=== PATIENT | female | born 1965 | race Caucasian/White ===

== ENCOUNTER 2019-01-12 13:36 | Inpatient (IN) | payer OTHER ==
--- OUTSIDE RECORDS SUMMARY | 2019-01-12 13:45 | XMS REPORT | Clinical Summary ---
:1965 Author Organization [facility] Address [address] [place] [address] Care Team Providers Name Role Phone Ovi Bassett Primary Care Provider Unavailable Allergies No Known Allergies Medications Medication Sig Dispensed Refills Start End Status Date Date QUEtiapine (SEROquel) Take 1 tablet 90 tablet 1 Active 25 MG (25 mg total) 9 019 tabletIndications: by mouth Schizoaffective nightly for 180 disorder, bipolar type days. ([facility]) SYMBICORT 160-4.5 INHALE 2 PUFFS 1 Inhaler 2 Active mcg/actuation BY MOUTH TWICE 9 019 inhalerIndications: DAILY Mild intermittent reactive airway disease without complication DULoxetine (CYMBALTA) TAKE ONE 90 capsule 0 Active 60 MG capsule CAPSULE BY 9 MOUTH DAILY DULoxetine (CYMBALTA) 0 Discontinued 60 MG capsule 9 018 melatonin-lemon balm 0 Discontinued leaf extr 10-1 mg 4 018 tablet diazePAM (VALIUM) 5 MG 0 Discontinued tablet 4 018 QUEtiapine (SEROquel) Take 0.5 15 tablet 2 Discontinued 25 MG tablets (12.5 8 018 tabletIndications: mg total) by Xochilt associated with mouth nightly Bipolar Disorder for 90 days. budesonide-formoterol Inhale 2 puffs 1 Inhaler 5 Discontinued (SYMBICORT) 160-4.5 2 (two) times a 8 019 mcg/actuation day. inhalerIndications: Mild intermittent reactive airway disease without complication diazePAM (VALIUM) 5 MG Take 1 tablet 30 tablet 0 Discontinued tabletIndications: (5 mg total) by 8 018 Schizoaffective mouth every 12 disorder, bipolar type (twelve) hours (HCC) as needed for anxiety for up to 30 days. DULoxetine (CYMBALTA) Take 1 capsule 90 capsule 3 Discontinued 60 MG (60 mg total) 8 019 capsuleIndications: by mouth daily. Schizoaffective disorder, bipolar type (HCC) nitrofurantoin, Take 1 capsule 6 capsule 0 macrocrystal-monohydra (100 mg total) 8 018 te, (MACROBID) 100 MG by mouth 2 capsule (two) times a day for 3 days. methylPREDNISolone follow package 21 tablet 0 (MEDROL, GISSELLE,) 4 mg directions 8 018 tabletIndications: Mild intermittent reactive airway disease without complication ciprofloxacin (CIPRO) Take 1 tablet 10 tablet 0 500 MG (500 mg total) 8 018 tabletIndications: by mouth 2 Urinary tract (two) times a infection without day for 5 days. hematuria, site unspecified QUEtiapine (SEROquel) Take 1 tablet 30 tablet 2 Discontinued 25 MG (25 mg total) 8 019 tabletIndications: by mouth Xochilt associated with nightly for 90 Bipolar Disorder days. albuterol (PROAIR Inhale 2 puffs 18 g 1 Discontinued HFA,PROVENTIL every 6 (six) 8 019 HFA,VENTOLIN HFA) 90 hours as needed mcg/actuation for wheezing or inhalerIndications: shortness of Mild intermittent breath. asthma with acute exacerbation predniSONE (DELTASONE) Take 1 tablet 6 tablet 0 20 mg (20 mg total) 8 018 tabletIndications: by mouth 2 Mild intermittent (two) times a asthma with acute day for 3 days. exacerbation vortioxetine Take 10 mg by 30 tablet 2 Discontinued (TRINTELLIX) 10 mg mouth daily for 9 019 tabletIndications: 90 days. Schizoaffective disorder, bipolar type ([facility]) methylPREDNISolone follow package 21 tablet 0 (MEDROL, GISSELLE,) 4 mg directions 9 019 tabletIndications: Intrinsic eczema ciclopirox-nail Apply 1 1 kit 0 lacquer removr 8 % application 019 kitIndications: topically Onychomycosis nightly for 30 days. DULoxetine (CYMBALTA) TAKE ONE 90 capsule 0 Discontinued 60 MG capsule CAPSULE BY 019 MOUTH DAILY PROAIR HFA 90 INHALE 2 PUFFS 17 g 2 mcg/actuation BY MOUTH EVERY 019 inhalerIndications: 6 HOURS Mild intermittent NEEDED FOR asthma with acute WHEEZING OR exacerbation SHORTNESS OF BREATH Hospital, Clinic, or Other Ordered Dose Route Frequency Start Date End Date Status Facility Administered Medication methylPREDNISolone acetate 80 mg IM once 06/07/2018 06/07/2018 Ended (DEPO-MEDROL) injection 80 mgIndications: Mild intermittent asthma with acute exacerbation Active Problems Problem Noted Date Weight gain due to medication 11/11/2018 Last Assessment & Plan: Therapeutic lifestyle changes discussed Screen for diabetes, dyslipidemia and cv risk factors Mixed hyperlipidemia 11/11/2018 Primary fibromyalgia 07/07/2018 Last Assessment & Plan: Encouraged mobility; nsaid for pain, SSRI treatment R/out rheumatoid arthritis or autoimmunity Mild intermittent asthma with acute exacerbation 06/07/2018 Last Assessment & Plan: Acute exacerbation. VSS meds per orders Follow up if not improved in 5-7 days Er precautions given Urinary tract infection without hematuria 04/26/2018 Last Assessment & Plan: Hx and exam suggestive of cystitis. Failed treatment with bactrim; Ucx sent Treat with ciprofloxacin Schizoaffective disorder, bipolar type 04/12/2018 Last Assessment & Plan: Controlled Continue cymbalta and seroquel Regular exercise Follow up in 3 months Reactive airway disease 04/12/2018 Need for shingles vaccine 04/12/2018 Resolved Problems Problem Noted Date Resolved Date Intrinsic eczema 08/15/2018 11/11/2018 Onychomycosis 08/15/2018 11/11/2018 RLS (restless legs syndrome) 07/07/2018 11/11/2018 Polyarthralgia 07/07/2018 11/11/2018 Leukocytosis 04/26/2018 11/11/2018 Last Assessment & Plan: Unknown etiology; to repeat before next appt. Annual physical exam 04/12/2018 04/27/2018 Last Assessment & Plan: 52 y.o. female who was seen today for Annual physical exam with complaints of bipolar type 1. Discussed CVD risk reduction, dietary interventions, appropriate physical exercise. General Precautions given: begin progressive daily aerobic exercise program, follow a low fat, low cholesterol diet and reduce exposure to stress Depression Screening: Positive, but patient is excluded from the follow up due to the following reasons: patient has an active diagnoses of Depression . Needs flu shot 04/12/2018 04/27/2018 Encounter for screening mammogram for breast cancer 04/12/2018 04/27/2018 Encounters Date Type Specialty Care Team Description 11/28/2018 Refill Ovi Hernandez MD 11/10/2018 Office Visit Family Ovi Will, Schizoaffective disorder, bipolar type (HCC) (Primary Dx); Weight gain due to medication; Mixed hyperlipidemia 10/15/2018 Refill Family Ovi Will Mild intermittent reactive airway disease without complication 10/10/2018 Refill Family Ovi Will, Mild intermittent asthma with acute exacerbation 09/03/2018 Refill Ovi Hernandez MD 08/16/2018 Refill Family Ovi Will Schizoaffective MD disorder, bipolar type (HCC) 08/15/2018 Office Visit Family Ovi Will, Schizoaffective disorder, bipolar type (HCC) (Primary Dx); Intrinsic eczema; Onychomycosis 07/07/2018 Office Visit Family Ovi Will, Primary fibromyalgia (Primary Dx); RLS (restless legs syndrome); Polyarthralgia; Need for shingles vaccine 06/07/2018 Office Visit Ovi Hernandez, Mild intermittent reactive airway disease without complication (Primary Dx); Schizoaffective disorder, bipolar type (HCC); Mild intermittent asthma with acute exacerbation 04/26/2018 Office Visit Family Ovi Will, Urinary tract infection without hematuria, site unspecified (Primary Dx); Mild intermittent reactive airway disease without complication; Leukocytosis, unspecified type 04/21/2018 Transcribe Orders Access Ovi Bassett, Abnormal mammogram (Primary Dx) 04/17/2018 Hospital Encounter Radiology Ovi Bassett, Encounter for screening MD mammogram for breast cancer 04/14/2018 Telephone Family Medicine Ovi Bassett 04/12/2018 Office Visit Family Ovi Will, Annual physical exam (Primary Dx); Schizoaffective disorder, bipolar type; Mild intermittent reactive airway disease without complication; Needs flu shot; Need for pneumococcal vaccination; Encounter for screening mammogram for breast cancer after 01/11/2018 Immunizations Name Dates Previously Given Next Due FLUBLOK QUAD PF 04/12/2018 Pneumococcal Polysaccharide 04/12/2018 Zoster Vaccine Recombinant 07/07/2018 Social History Tobacco Use Types Packs/Day Years Used Date Former Smoker Smokeless Tobacco: Never Used Alcohol Use Drinks/Week oz/Week Comments No Sex Assigned at Date Recorded Not on file Job Start Date Occupation Industry Not on file Not on file Not on file Travel History Travel Start Travel End No recent travel history available. Last Filed Vital Signs Vital Sign Reading Time Taken Blood Pressure 136/88 11/10/2018 7:44 AM CDT Pulse 90 11/10/2018 7:44 AM CDT Temperature 36.9 C (98.5 F) 11/10/2018 7:44 AM CDT Respiratory Rate - - Oxygen Saturation 99% 11/10/2018 7:44 AM CDT Inhaled Oxygen Concentration - - Weight 62.6 kg (138 lb) 11/10/2018 7:44 AM CDT Height 158.8 cm (5' 2.5") 11/10/2018 7:44 AM CDT Body Mass Index 24.84 11/10/2018 7:44 AM CDT Plan of Treatment Date Type Specialty Care Team Description 01/19/2019 Office Visit Family Ovi Will MD [address] [place] [address] [phone] Health Maintenance Due Date Last Done Comments COLONOSCOPY SCREENING 10/29/2017 SHINGLES VACCINES (#2) 09/07/2018 07/07/2018 INFLUENZA VACCINE 02/15/2019 04/12/2018 BREAST CANCER SCREENING 04/27/2020 04/27/2018, 04/21/2018, 04/17/2018, Additional history exists Procedures Procedure Name Priority Date/Time Associated Comments Diagnosis RHEUMATOID ARTHRITIS Routine 07/07/2018 11:23 Primary Results for this DIAGNOSTIC PANEL AM JOB HAND fibromyalgia procedure are in IDENTRA(TM) WITH RLS (restless legs the results 14.3.3 ETA syndrome) section. Polyarthralgia SEDIMENTATION RATE Routine 07/07/2018 11:23 Primary Results for this AM JOB HAND fibromyalgia procedure are in RLS (restless legs the results syndrome) section. Polyarthralgia JAMSHID SCREEN W IFA W Routine 07/07/2018 11:23 Primary Results for this REFLEX TO TITER AM JOB HAND fibromyalgia procedure are in RLS (restless legs the results syndrome) section. Polyarthralgia C-REACTIVE PROTEIN Routine 07/07/2018 11:23 Primary Results for this AM JOB HAND fibromyalgia procedure are in RLS (restless legs the results syndrome) section. Polyarthralgia TOTAL IRON BINDING Routine 07/07/2018 11:23 Primary Results for this CAPACITY AM JOB HAND fibromyalgia procedure are in RLS (restless legs the results syndrome) section. Polyarthralgia TRANSFERRIN LEVEL Routine 07/07/2018 11:23 Primary Results for this AM JOB HAND fibromyalgia procedure are in RLS (restless legs the results syndrome) section. Polyarthralgia CBC HEMOGRAM Routine 07/07/2018 11:23 Primary Results for this AM JOB HAND fibromyalgia procedure are in RLS (restless legs the results syndrome) section. Polyarthralgia FERRITIN LEVEL Routine 07/07/2018 11:23 Primary Results for this AM JOB HAND fibromyalgia procedure are in RLS (restless legs the results syndrome) section. Polyarthralgia CBC WITH PLATELET AND Routine 06/02/2018 12:00 Leukocytosis, Results for this DIFFERENTIAL AM JOB HAND unspecified type procedure are in the results section. URINALYSIS, COMPLETE, Routine 04/26/2018 12:00 Urinary tract Results for this WITH REFLEX TO CULTURE AM CDT infection without procedure are in hematuria, site the results unspecified section. MAMMO BREAST SCREEN Routine 04/17/2018 9:30 Encounter for Results for this TOMOSYNTHESIS AM CDT screening mammogram procedure are in BILATERAL for breast cancer the results section. VITAMIN D 25 HYDROXY Routine 04/12/2018 12:00 Annual physical Results for this LEVEL AM CDT exam procedure are in the results section. LIPID PANEL WITH Routine 04/12/2018 12:00 Annual physical Results for this REFLEX TO DIRECT LDL AM CDT exam procedure are in the results section. THYROID STIMULATING Routine 04/12/2018 12:00 Annual physical Results for this HORMONE AM CDT exam procedure are in the results section. T4, FREE Routine 04/12/2018 12:00 Annual physical Results for this AM CDT exam procedure are in the results section. URINALYSIS, COMPLETE, Routine 04/12/2018 12:00 Annual physical Results for this WITH REFLEX TO CULTURE AM CDT exam procedure are in the results section. HEMOGLOBIN A1C Routine 04/12/2018 12:00 Annual physical Results for this AM CDT exam procedure are in the results section. COMPREHENSIVE Routine 04/12/2018 12:00 Annual physical Results for this METABOLIC PANEL AM CDT exam procedure are in the results section. CBC WITH PLATELET AND Routine 04/12/2018 12:00 Annual physical Results for this DIFFERENTIAL AM CDT exam procedure are in the results section. URINE CULTURE Routine 04/12/2018 12:00 Results for this AM CDT procedure are in the results section. after 01/11/2018 Results JAMSHID SCREEN W IFA W REFLEX TO TITER (07/07/2018 11:23 AM JOB HAND) Pathologist [facility] JAMSHID screen NEGATIVE NEGATIVE [facility] Comment: PadletMARIA ESTHER JAMSHID IFA is a first line screen for detecting the II presence of up to approximately 150 autoantibodies in various autoimmune diseases. A negative JAMSHID IFA result suggests JAMSHID-associated autoimmune diseases are not present at this time. Visit Physician FAQs for interpretation of all antibodies in the [place], prevalence, and association with diseases at http://education.Aviary/ faq/EJX842 Specimen Blood Narrative Performed At FASTING:YES [facility] FASTING: YES Resulting Agency Comment Performing Organization Information: Site ID: [id number] Name: [facility] Address: [address] [place] [phone] Director: Dr. Moises Sommers Performing Organization Address City/State/Zipcode Phone Number [facility] II [address] [place] [address] RHEUMATOID ARTHRITIS DIAGNOSTIC PANEL IDENTRA(TM) WITH 14.3.3 ETA (07/07/2018 11 :23 AM JOB HAND) Rheumatoid factor <14 <14 IU/mL [facility]EREK OLS [facility] Cyclic citrullin <16 Units [facility] peptide Ab Comment: DIAGNOSTICS/DEREK Reference Range: [facility] NEGATIVE: <20 WEAK POSITIVE: 20-39 MODERATE POSITIVE: 40-59 STRONG POSITIVE >59 14.3.3 ETA protein <0.2 <0.2 ng/mL [facility] Comment: DIAGNOSTICS/DEREK [facility] The 14-3-3 eta protein is a marker of synovial inflammation that is released into synovial fluid and peripheral blood in rheumatoid arthritis (RA) and erosive psoriatic arthritis. One in five RF and CCP seronegative early stage RA patients is found to be positive for 14-3-3 eta protein. Patients with active joint RA disease have higher values of 14-3-3 eta protein than those with inactive RA or psoriasis without arthritis. Values >0.50 ng/mL are associated with more aggressive disease and poorer outcomes. Unlike RF and CCP, 14-3-3 eta is a therapeutically modifiable marker to monitor response to therapy. For further information please visit: [email or web address]? [email or web address] This test was developed and its analytical performance characteristics have been determined by [facility]. It has not been cleared or approved by FDA. This assay has been validated pursuant to the CLIA regulations and is used for clinical purposes. Specimen Narrative Performed At FASTING:YES [facility] FASTING: YES Resulting Agency Comment Performing Organization Information: Site ID: [id number] Name: [facility], Address: [address] [place] [phone] Director: Aundrea Silver MD,PhD,VICKI Performing Organization Address City/[facility] [place] Phone Number [employer]/[address] [address] [phone] [facility] Total iron binding capacity (07/07/2018 11:23 AM JOB HAND) Iron level 66 45 - 160 mcg/dL [facility] Iron binding capacity 343 250 - 450 mcg/dL [employer] (calc) [place] Iron saturation 19 11 - 50 % (calc) [facility] Specimen Blood Narrative Performed At FASTING:YES [facility] FASTING: YES Resulting Agency Comment Performing Organization Information: Site ID: RGA Name: [facility] Address: [address] [place] [phone] Director: Jennifer Salter Performing Organization Address City/State/Zipcode Phone Number [employer] [place] [address] [place] [phone] Sedimentation rate (07/07/2018 11:23 AM JOB HAND) Pathologist [facility] Sedimentation rate 9 < OR=20 mm/h [employer] [place] Specimen Blood Narrative Performed At FASTING:YES [facility] FASTING: YES Resulting Agency Comment Performing Organization Information: Site ID: [id number] Name: [facility] Address: [address] [place] [phone] Director: Jennifer Salter Performing Organization Address City/State/[facility] Phone Number [employer] [place] [address] [place] [phone] CBC hemogram (07/07/2018 11:23 AM JOB HAND) [facility] WBC 10.7 3.8 - 10.8 [facility] Thousand/uL [place] RBC 4.77 3.80 - 5.10 [facility] Million/uL [place] HGB 13.0 11.7 - 15.5 g/dL [employer] [place] HCT 40.3 35.0 - 45.0 % [employer] [place] MCV 84.5 80.0 - 100.0 fL [employer] [place] MCH 27.3 27.0 - 33.0 pg [employer] [place] MCHC 32.3 32.0 - 36.0 g/dL [employer] [place] RDW 14.5 11.0 - 15.0 % [employer] [place] Platelet count 405 (H) 140 - 400 [employer] Thousand/uL [place] MPV 10.0 7.5 - 12.5 fL [employer] [place] Specimen Blood Narrative Performed At FASTING:YES [facility] FASTING: YES Resulting Agency Comment Performing Organization Information: Site ID: [id number] Name: [facility] Address: [address] [place] [phone] Director: Jennifer Salter Performing Organization Address [facility] Phone Number [employer] [address] [address] C-reactive protein (07/07/2018 11:23 AM JOB HAND) Pathologist [facility] CRP 1.7 <8.0 mg/L [employer] [place] Specimen Blood Narrative Performed At FASTING:YES [facility] FASTING: YES Resulting Agency Comment Performing Organization Information: Site ID: RGA Name: [facility] Address: [address] [place] [phone] Director: Jennifer Salter Performing Organization Address [facility] Phone Number [facility] [employer] [address] [address] Transferrin level (07/07/2018 11:23 AM JOB HAND) Pathologist [facility] Transferrin 264 188 - 341 mg/dL [facility] Specimen Blood Narrative Performed At FASTING:YES [facility] FASTING: YES Resulting Agency Comment Performing Organization Information: Site ID: [id number] Name: [facility] Address: [address] [place] [phone] Director: Dr. Moises Sommers Performing Organization Address [facility] Phone Number [facility] [employer] [address] Ferritin level (07/07/2018 11:23 AM JOB HAND) Pathologist [facility] Ferritin level 48 10 - 232 ng/mL [facility] [place] Specimen Blood Narrative Performed At FASTING:YES [facility] FASTING: YES Resulting Agency Comment Performing Organization Information: Site ID: RGA Name: [facility] Address: [address] [place] [phone] Director: Jennifer Salter Performing Organization Address [facility] [place] Phone Number [employer] [address] [address] CBC with platelet and differential (06/02/2018 12:00 AM JOB HAND)Only the most recent of2 resultswithin the time period is included. Pathologist [facility] WBC 10.0 3.8 - 10.8 [facility] Thousand/uL [place] RBC 4.55 3.80 - 5.10 [facility] Million/uL [place] HGB 12.7 11.7 - 15.5 [facility] g/dL [place] HCT 38.4 35.0 - 45.0 % [facility] [place] MCV 84.4 80.0 - 100.0 fL [employer] [place] MCH 27.9 27.0 - 33.0 pg [facility] [place] MCHC 33.1 32.0 - 36.0 [facility] g/dL [place] RDW 13.9 11.0 - 15.0 % [facility] Platelet count 401 (H) 140 - 400 [facility] Thousand/uL [place] MPV 9.8 7.5 - 12.5 fL [facility] [place] Neutrophils, absolute 5,740 1,500 - 7,800 [facility] cells/uL [place] Lymphocytes, absolute 3,410 850 - 3,900 [facility] cells/uL [place] Monocytes, absolute 600 200 - 950 [facility] cells/uL [place] Eosinophils, absolute 180 15 - 500 [facility] cells/uL [place] Basophils, absolute 70 0 - 200 [facility] cells/uL [place] Neutrophils 57.4 % [facility] [place] Lymphocytes 34.1 % [facility] [place] Monocytes 6.0 % [facility] [place] Eosinophils 1.8 % [facility] [place] Basophils + RC 0.7 % [facility] [place] Specimen Blood Narrative Performed At FASTING:NO [facility] FASTING: NO Resulting Agency Comment Performing Organization Information: Site ID: RGA Name: [facility] Address: [address] [place] [phone] Director: Jennifer Salter Performing Organization Address City/State/Zipcode Phone Number [employer] [place] [address] [place] [address] URINALYSIS, COMPLETE, WITH REFLEX TO CULTURE (04/26/2018 12:00 AM CDT)Only the most recent of2 resultswithin the time period is included. Color, UA YELLOW YELLOW [facility] [place] Appearance CLEAR CLEAR [facility] [place] Specific gravity, 1.026 1.001 - 1.035 [facility] urine [place] pH, urine < OR=5.0 5.0 - 8.0 [facility] [place] Glucose, urine NEGATIVE NEGATIVE [facility] [place] Bilirubin, UA NEGATIVE NEGATIVE [facility] [place] Ketones, UA TRACE (A) NEGATIVE [facility] [place] Occult blood, NEGATIVE NEGATIVE [facility] urine [place] Protein, UA TRACE (A) NEGATIVE [facility] [place] Nitrite, UA NEGATIVE NEGATIVE [facility] [place] Leukocyte NEGATIVE NEGATIVE [facility] esterase, UA [place] WBC, UA NONE SEEN < OR=5 /HPF [facility] [place] RBC, UA NONE SEEN < OR=2 /HPF [facility] [place] Squamous NONE SEEN < OR=5 /HPF [facility] epithelial cells, [place] UA Bacteria, UA NONE SEEN NONE SEEN /HPF [facility] [place] Hyaline casts, UA NONE SEEN NONE SEEN /LPF [facility] [place] Reflex NO CULTURE [facility] Specimen Resulting Agency Comment Performing Organization Information: Site ID: RGA Name: [facility] Address: [address] [place] [phone] Director: Jennifer Salter Performing Organization Address City/State/Zipcode Phone Number [facility] [place] [address] [place], [place] [phone] Mammo Breast Screen Tomosynthesis Bilateral (04/17/2018 9:30 AM CDT) Specimen Addenda Addendum by Ami Henriquez MD on 05/02/2018 3:33 PM ADDENDUM #1 Films from outside mammogram dated 03/17/2011 and 05/20/2009 performed in [place], [place] submitted for comparison. There has been no significant interval change in the mammographic appearance of the bilateral breasts allowing for differences in imaging technique. The previously described right breast asymmetry is stable in appearance compared to prior outside imaging dating back to 2008 and is considered benign. IMPRESSION: No specific mammographic features of breast malignancy. Final assessment: BIRADS 2. Benign findings. Recommend correlation with physical examination and annual screening mammography. Narrative Performed At EXAMINATION: MAMMO BREAST SCREEN TOMOSYNTHESIS BILATERAL HM RADIANT COMPARISON:No prior mammograms provided for comparison. TECHNIQUE: Bilateral digital screening mammography was performed with tomosynthesis and interpreted using computer-assisted detection. CLINICAL HISTORY: 52-year-old asymptomatic female. No personal or family history of breast malignancy. The patient presents for routine screening. FINDINGS: There are scattered fibroglandular densities. There are bilateral arterial vascular calcifications which should be correlated with cardiac and endocrine risk factors. There are no suspicious masses, calcifications or distortions in the left breast.There is an asymmetry in the anterior central right breast seen only on the CC view. IMPRESSION: 1. Right breast asymmetry. Recommend correlation with previous outside imaging to assess stability. If prior images cannot be obtained in three weeks, further diagnostic evaluation is warranted. 2. No specific mammographic features of left breast malignancy. BI-RADS 0. Incomplete. Additional imaging required. The patient should return for additional views and possible ultrasound of the right breast. Tomosynthesis guidance may be of aid. If prior outside mammograms become available for comparison, an addendum will be provided. This facility is accredited by the [place] for Mammography. A negative x-ray report should not delay biopsy if a dominant or clinically suspicious mass is present.Not all cancers are identified by x-ray. [id number] Performing Organization Address [facility] Phone Number KIARA [address] [place] [address] LIPID PANEL WITH REFLEX TO DIRECT LDL (04/12/2018 12:00 AM CDT) [facility] Cholesterol, total 197 <200 mg/dL [facility] [place] HDL cholesterol 63 >50 mg/dL [facility] [place] Triglycerides 97 <150 mg/dL [facility] [place] LDL cholesterol 114 (H) mg/dL (calc) [facility] calculated Comment: [place] Reference range: <100 Desirable range <100 mg/dL for primary prevention; <70 mg/dL for patients with CHD or diabetic patients with > or=2 CHD risk factors. LDL-C is now calculated using the Ju calculation, which is a validated novel method providing better accuracy than the Friedewald equation in the estimation of LDL-C. Isaias SYED et al. ESHA. 2013;310(19): 2424-0183 (http://education.CSID.Genetic Finance/faq/YMQ748) Cholesterol/HDL 3.1 <5.0 (calc) [facility] Non-HDL cholesterol 134 (H) <130 mg/dL [facility] Comment: (calc) [place] For patients with diabetes plus 1 major ASCVD risk factor, treating to a non-HDL-C goal of <100 mg/dL (LDL-C of <70 mg/dL) is considered a therapeutic option. Specimen Narrative Performed At FASTING:YES [facility] FASTING: YES Resulting Agency Comment Performing Organization Information: Site ID: [id number] Name: [facility] Address: [address] [place] [phone] Director: Jennifer Salter Performing Organization Address [facility] Phone Number [facility] [place] [address] [place], [place] [id number] Vitamin D 25 hydroxy level (04/12/2018 12:00 AM CDT) [facility] Vitamin D, 40 30 - 100 [facility] 25-hydroxy Comment: ng/mL [place] Vitamin D Status 25-OH Vitamin D: Deficiency:<20 ng/mL Insufficiency: 20 - 29 ng/mL Optimal: > or=30 ng/mL For 25-OH Vitamin D testing on patients on D2-supplementation and patients for whom quantitation of D2 and D3 fractions is required, the QuestAssureD(TM) 25-OH VIT D, (D2,D3), LC/MS/MS is recommended: order code 07364 (patients >2yrs). For more information on this test, go to: http://education.SmartCare system/faq/DAH537 (This link is being provided for informational/educational purposes only.) Specimen Blood Narrative Performed At FASTING:YES [facility] FASTING: YES Resulting Agency Comment Performing Organization Information: Site ID: [facility] Name: [facility] Address: [address] [place] [phone] Director: Jennifer Salter Performing Organization Address [facility] [place] [address] Urine culture (04/12/2018 12:00 AM CDT) Urine culture SEE NOTE (A) [facility] Comment: [place] CULTURE, URINE, ROUTINE MICRO NUMBER:[id number] TEST STATUS: FINAL SPECIMEN SOURCE: URINE SPECIMEN QUALITY:ADEQUATE RESULT:10,000-50,000 CFU/mL of Group B Streptococcus isolated Beta-hemolytic Streptococci are predictably susceptible to penicillin and other beta-lactams. Susceptibility testing not routinely performed. COMMENT: Erythromycin and clindamycin are not recommended for treatment of urinary tract infections, but clindamycin may be useful for treatment of rectovaginal colonization or infection. COMMENT: Additional organism(s) less than 10,000 CFU/ mL isolated. These organisms, commonly found on external and internal genitalia, are considered colonizers. No further testing performed. Specimen Narrative Performed At FASTING:YES [facility] FASTING: YES Resulting Agency Comment Performing Organization Information: Site ID: [facility] Name: [facility] Address: [address] [place] [phone] Director: Jennifer aSlter Performing Organization Address [facility] [place] [address] Thyroid stimulating hormone (04/12/2018 12:00 AM CDT) TSH 1.87 mIU/L [facility] Comment: [place] Reference Range > or=20 Years0.40-4.50 Ranges First trimester0.26-2.66 Second trimester 0.55-2.73 Third trimester0.43-2.91 Specimen Blood Narrative Performed At FASTING:YES [facility] FASTING: YES Resulting Agency Comment Performing Organization Information: Site ID: [facility] Name: [facility] Address: [address] [place] [phone] Director: Jennifer Salter Performing Organization Address [facility] Phone Number SP [facility] [place] [phone] T4, free (04/12/2018 12:00 AM CDT) T4, free 0.9 0.8 - 1.8 ng/dL [facility] [place] Specimen Blood Narrative Performed At FASTING:YES [facility] FASTING: YES Resulting Agency Comment Performing Organization Information: Site ID: [facility] Name: [facility] Address: [address] [place] [phone] Director: Jennifer Salter Performing Organization Address [facility] [place] Phone Number [place] [address] Hemoglobin A1c (04/12/2018 12:00 AM CDT) Hemoglobin A1C 5.1 <5.7 % of [facility] Comment: total Hgb [place] For the purpose of screening for the presence of diabetes: <5.7% Consistent with the absence of diabetes 5.7-6.4%Consistent with increased risk for diabetes (prediabetes) > or=6.5%Consistent with diabetes This assay result is consistent with a decreased risk of diabetes. Currently, no consensus exists regarding use of hemoglobin A1c for diagnosis of diabetes in children. According to [place] [employer] (ADA) guidelines, hemoglobin A1c <7.0% represents optimal control in non- diabetic patients. Different metrics may apply to specific patient populations. Standards of Medical Care in Diabetes(ADA). Specimen Blood Narrative Performed At FASTING:YES [facility] FASTING: YES Resulting Agency Comment Performing Organization Information: Site ID: [facility] Name: [facility] Address: [address] [place] [phone] Director: Jennifer Salter Performing Organization Address [facility] Phone Number SP [employer] [place] [address] Comprehensive metabolic panel (04/12/2018 12:00 AM CDT) [facility] Glucose 90 65 - 99 [facility] Comment: mg/dL [place] Fasting reference interval BUN, whole blood 13 7 - 25 mg/dL [facility] [place] Creatinine 0.97 0.50 - 1.05 [facility] Comment: mg/dL [place] For patients >49 years of age, the reference limit for Creatinine is approximately 13% higher for people identified as -Maltese. EGFR Non-Afr. 68 > OR=60 [facility] [place] mL/min/1.73m [place] 2 EGFR 79 > OR=60 [facility] [place] mL/min/1.73m [place] 2 BUN/creatinine NOT APPLICABLE 6 - 22 [facility] ratio (calc) [place] Sodium 140 135 - 146 [facility] mmol/L [place] Potassium 3.5 3.5 - 5.3 [facility] mmol/L [place] Chloride 107 98 - 110 [facility] mmol/L [place] CO2 23 20 - 32 [facility] mmol/L [place] Calcium 9.4 8.6 - 10.4 [facility] mg/dL [place] Protein 7.4 6.1 - 8.1 [facility] g/dL [place] Albumin, S 4.3 3.6 - 5.1 [facility] g/dL [place] Globulin, total 3.1 1.9 - 3.7 [facility] g/dL (calc) [place] Albumin/globulin 1.4 1.0 - 2.5 [facility] ratio (calc) [place] Total bilirubin 0.6 0.2 - 1.2 [facility] mg/dL [place] Alkaline 92 33 - 130 U/L [facility] phosphatase [place] AST 11 10 - 35 U/L [facility] [place] ALT 11 6 - 29 U/L [facility] [place] Specimen Blood Narrative Performed At FASTING:YES [facility] FASTING: YES Resulting Agency Comment Performing Organization Information: Site ID: [facility] Name: [facility] Address: [address] [place] [phone] Director: Jennifer Salter Performing Organization Address City/State/Zipcode Phone Number [facility] [address] [address] after 01/11/2018 Yazmin Bruner [employer] Self 1965 [address] (Home) [place] [address] Advance Directives Patient has advance care planning documents on file. For more information, please contact:Hakeem Tavares[address] [place] [address]
[2019-01-12] MEDS ORDERED: Meropenem 500 MG/100 ML BAG ONE (16:00)
[2019-01-12] MEDS ORDERED: NA CHLORIDE 0.9% 1,000 ML ONE (16:00)
[2019-01-12 16:09] LABS: Absolute Lymphocytes (CBC) 4.2 K/uL (0.7-4.9); Basophils % 0.5 % (0-1.3); Eosinophils % 1.7 % (0-4.4); Hematocrit 39.7 % (36.0-45.0); Lymphocytes % 37.5 % (15.3-44.8); MPV 8.5 fL (7.6-11.3); Monocytes % 6.7 % (3.3-12.3); RBC Red Blood Cell Count 4.73 M/uL (3.86-4.86)
--- NOTE | 2019-01-12 16:28 | ER ---
Nurse's Notes [facility] Name: Jennifer Bruner Age: 53 yrs Sex: Female : 1965 Arrival Date: 01/12/2019 Time: 13:44 Bed 19 Private MD: Diagnosis: Extended spectrum beta lactamase (ESBL) resistance;Urinary tract infection, site not specified Presentation: 01/12 14:02 Presenting complaint: Patient states: "I saw Dr. Olivares at the urgent care Tuesday, he ss said I had a UTI. I called today because I didn't feel any better and they said my culture just came back and it looks like I need IV antibiotics.". Transition of care: patient was not received from another setting of care. Onset of symptoms is unknown. Risk Assessment: Do you want to hurt yourself or someone else? Patient reports no desire to harm self or others. Initial Sepsis Screen: Does the patient meet any 2 criteria? No. Patient's initial sepsis screen is negative. Does the patient have a suspected source of infection? Yes: Dysuria/Frequency/Urgency/UTI. Care prior to arrival: None. 14:02 Method Of Arrival: Ambulatory 14:02 Acuity: KATIE 3 ss Historical: - Allergies: 14:05 Cipro PO; ss 14:05 Bactrim; ss 14:05 Codeine; ss - Home Meds: 14:05 Macrobid [Active]; Cymbalta 60 mg oral cpDR 1 cap once daily [Active]; ProAir [Active]; ss symbicort [Active]; - PMHx: 14:05 Asthma; ss - PSHx: 14:05 R nephrectomy; Bowel resection; Hysterectomy; Cholecystectomy; ss - Immunization history:: Adult Immunizations up to date. - Social history:: Smoking status: Patient/guardian denies using tobacco. - Ebola Screening: : Patient denies exposure to infectious person Patient denies travel to an Ebola-affected area in the 21 days before illness onset. Screenin:25 Abuse screen: Denies threats or abuse. Nutritional screening: No deficits noted. em Tuberculosis screening: No symptoms or risk factors identified. Fall Risk None identified. Assessment: 14:25 General: Appears in no apparent distress. comfortable, Behavior is calm, cooperative. em Pain: Complains of pain in left lower back Pain currently is 4 out of 10 on a pain scale. Neuro: Level of Consciousness is awake, alert, obeys commands, Oriented to person, place, time, situation. Cardiovascular: Capillary refill < 3 seconds Patient's skin is warm and dry. Respiratory: Airway is patent Respiratory effort is even, unlabored, Respiratory pattern is regular, symmetrical. GI: Abdomen is flat, Patient currently denies nausea, vomiting. : Reports burning with urination, pain urinary frequency. Derm: Skin is intact, is healthy with good turgor, Skin is pink, warm \\T\\ dry. Musculoskeletal: Capillary refill < 3 seconds, Range of motion: intact in all extremities. 14:35 Reassessment: Patient appears in no apparent distress at this time. I agree with above iw assessment by Dom Toro LVN. 15:30 Reassessment: Patient appears in no apparent distress at this time. Patient and/or em family updated on plan of care and expected duration. Pain level reassessed. Patient is alert, oriented x 3, equal unlabored respirations, skin warm/dry/pink. 16:50 Reassessment: unable to give report at this time, nurse will return phone call. em Vital Signs: 14:01 BP 128 / 76; Pulse 86; Resp 14; Temp 98.4(TE); Pulse Ox 98% on R/A; Weight 62.6 kg; ss Height 5 ft. 3 in. (160.02 cm); Pain 5/10; 15:50 BP 141 / 97; Pulse 77; Resp 18; Pulse Ox 99% on R/A; Pain 4/10; em 16:50 BP 146 / 90; Pulse 57; Resp 18; Pulse Ox 99% on R/A; em 14:01 Body Mass Index 24.45 (62.60 kg, 160.02 cm) ED Course: 13:44 Patient arrived in ED. as 14:01 Arm band placed on right wrist. 14:03 Triage completed. 14:06 Dom Toro LVN is Primary Nurse. em 14:25 Patient has correct armband on for positive identification. Bed in low position. Call em light in reach. 14:29 Christofer Salmeron PA is PHCP. jr8 14:29 Silvino Mcrae MD is Attending Physician. jr8 15:50 Initial lab(s) drawn, by me, sent to lab. Inserted saline lock: 22 gauge in right em antecubital area, using aseptic technique. Blood collected. 16:26 Kavon Romero MD is Hospitalizing Provider. jr8 16:37 EKG done, by retread technician. reviewed by Silvino Mcrae MD. sm3 17:09 No provider procedures requiring assistance completed. Patient admitted, IV remains in em place. Administered Medications: 15:50 Drug: Meropenem 1 grams Route: IV; Rate: calculated rate; Site: right antecubital; em 15:50 Drug: NS 0.9% 1000 ml Route: IV; Rate: 1000 ml; Site: right antecubital; em Outcome: 16:26 Decision to Hospitalize by Provider. jr8 17:10 Admitted to Med/surg accompanied by tech, family with patient, via wheelchair, room em 424, with chart, Report called to VICKI Ospina 17:10 Condition: good 17:10 Instructed on the need for admit, Demonstrated understanding of instructions. 17:10 Patient left the ED. em Signatures: Dom Toro, SAVANA PAPER FOLDING MACHINE OPERATOR em Zohreh Vazquez as Мария Faulkner, VICKI COHEN Sharri Santana RN RN ss Roszak, Josh, PA PA jr8 Elise Arteaga 3
--- NOTE | 2019-01-12 16:28 | EDPHYS ---
Physician Documentation [facility] Name: Jennifer Bruner Age: 53 yrs Sex: Female : 1965 Arrival Date: 01/12/2019 Time: 13:44 Bed 19 Private MD: ED Physician Silvino Mcrae HPI: 01/12 17:11 This 53 yrs old Female presents to ER via Ambulatory with complaints of needs jr8 iv antibiotics. 17:11 The patient presents with urinary symptoms, dysuria, frequency, urgency. Onset: The jr8 symptoms/episode began/occurred gradually, 2 week(s) ago. Modifying factors: The symptoms are alleviated by nothing, the symptoms are aggravated by urinating. Associated signs and symptoms: Pertinent positives: cramping, back pain. Severity of symptoms: At their worst the symptoms were mild, in the emergency department the symptoms are unchanged. The patient has not experienced similar symptoms in the past. The patient has been recently seen by a physician:. Patient saw urgent care and was diagnosed with UTI and given macrobid. Cultures came back today showing ESBL. Stated that she is not feeling any better even after PO antibiotics . Historical: - Allergies: 14:05 Cipro PO; ss 14:05 Bactrim; ss 14:05 Codeine; ss - Home Meds: 14:05 Macrobid [Active]; Cymbalta 60 mg oral cpDR 1 cap once daily [Active]; ProAir [Active]; ss symbicort [Active]; - PMHx: 14:05 Asthma; ss - PSHx: 14:05 R nephrectomy; Bowel resection; Hysterectomy; Cholecystectomy; ss - Immunization history:: Adult Immunizations up to date. - Social history:: Smoking status: Patient/guardian denies using tobacco. - Ebola Screening: : Patient denies exposure to infectious person Patient denies travel to an Ebola-affected area in the 21 days before illness onset. ROS: 17:11 Eyes: Negative for injury, pain, redness, and discharge, ENT: Negative for injury, jr8 pain, and discharge, Neck: Negative for injury, pain, and swelling, Cardiovascular: Negative for chest pain, palpitations, and edema, Respiratory: Negative for shortness of breath, cough, wheezing, and pleuritic chest pain, MS/Extremity: Negative for injury and deformity, Skin: Negative for injury, rash, and discoloration, Neuro: Negative for headache, weakness, numbness, tingling, and seizure. 17:11 Abdomen/GI: Positive for abdominal pain, Negative for nausea, vomiting, and diarrhea, abdominal distension, anorexia, dysphagia, hematemesis, black/tarry stool, rectal pain, rectal bleeding, bowel incontinence, flatulence. 17:11 Back: Positive for pain at rest, Negative for pain with movement, radiated pain. 17:11 : Positive for urinary symptoms. Exam: 17:11 Eyes: Pupils equal round and reactive to light, extra-ocular motions intact. Lids and jr8 lashes normal. Conjunctiva and sclera are non-icteric and not injected. Cornea within normal limits. Periorbital areas with no swelling, redness, or edema. ENT: Nares patent. No nasal discharge, no septal abnormalities noted. Tympanic membranes are normal and external auditory canals are clear. Oropharynx with no redness, swelling, or masses, exudates, or evidence of obstruction, uvula midline. Mucous membranes moist. Neck: Trachea midline, no thyromegaly or masses palpated, and no cervical lymphadenopathy. Supple, full range of motion without nuchal rigidity, or vertebral point tenderness. No Meningismus. Cardiovascular: Regular rate and rhythm with a normal S1 and S2. No gallops, murmurs, or rubs. Normal PMI, no JVD. No pulse deficits. Respiratory: Lungs have equal breath sounds bilaterally, clear to auscultation and percussion. No rales, rhonchi or wheezes noted. No increased work of breathing, no retractions or nasal flaring. Back: No spinal tenderness. No costovertebral tenderness. Full range of motion. Skin: Warm, dry with normal turgor. Normal color with no rashes, no lesions, and no evidence of cellulitis. MS/ Extremity: Pulses equal, no cyanosis. Neurovascular intact. Full, normal range of motion. Neuro: Awake and alert, GCS 15, oriented to person, place, time, and situation. Cranial nerves II-XII grossly intact. Motor strength 5/5 in all extremities. Sensory grossly intact. Cerebellar exam normal. Normal gait. 17:11 Abdomen/GI: Inspection: abdomen appears normal, Bowel sounds: active, all quadrants, Palpation: soft, in all quadrants, mild abdominal tenderness, in the suprapubic area, mass, is not appreciated, rebound tenderness, is not appreciated, voluntary guarding, is not appreciated, involuntary guarding, is not appreciated, no appreciated organomegaly, Indicators: McBurney's point is not tender, Jarvis's sign is negative, Rovsing's sign is negative, Liver: tenderness, is not appreciated. Vital Signs: 14:01 BP 128 / 76; Pulse 86; Resp 14; Temp 98.4(TE); Pulse Ox 98% on R/A; Weight 62.6 kg; ss Height 5 ft. 3 in. (160.02 cm); Pain 5/10; 15:50 BP 141 / 97; Pulse 77; Resp 18; Pulse Ox 99% on R/A; Pain 4/10; em 16:50 BP 146 / 90; Pulse 57; Resp 18; Pulse Ox 99% on R/A; em 14:01 Body Mass Index 24.45 (62.60 kg, 160.02 cm) ss MDM: 14:29 Patient medically screened. [facility] 16:25 Data reviewed: vital signs, nurses notes, lab test result(s), and as a result, I will jr admit patient. Data interpreted: Pulse oximetry: on room air is 98 %. Interpretation: normal. Counseling: I had a detailed discussion with the patient and/or guardian regarding: the historical points, exam findings, and any diagnostic results supporting the discharge/admit diagnosis, lab results, the need for further work-up and treatment in the hospital. Physician consultation: Kavon Romero MD was called at 16:26, was contacted at 16:26, regarding admission, consult, patient's condition, and will see patient. 01/12 15:36 Order name: CBC with Diff; Complete Time: 16:25 [facility] 01/12 15:36 Order name: Basic Metabolic Panel; Complete Time: 16:51 [facility] 01/12 16:24 Order name: EKG Electrocardiogram EDDE 01/12 16:24 Order name: Chest Single View [facility] 01/12 15:36 Order name: IV; Complete Time: 15:56 jr Administered Medications: 15:50 Drug: Meropenem 1 grams Route: IV; Rate: calculated rate; Site: right antecubital; em 15:50 Drug: NS 0.9% 1000 ml Route: IV; Rate: 1000 ml; Site: right antecubital; em Disposition: 01/12/19 16:26 Hospitalization ordered by Kavon Romero for Inpatient Admission. Preliminary diagnosis are Extended spectrum beta lactamase (ESBL) resistance, Urinary tract infection, site not specified. - Bed requested for Telemetry/MedSurg (Inpatient). - Status is Inpatient Admission. em - Condition is Stable. - Problem is new. - Symptoms have improved. UTI on Admission? Yes Addendum: 01/14/2019 04:06 Co-signature as Attending Physician, Silvino Mcrae MD. g s Signatures: Dispatcher [employer] EDMS Dom Toro, SR. DIRECTOR SR. DIRECTOR em Sharri Santana, RN RN ss Christofer Salmeron, ROBYN PA jr8 Silvino Mcrae MD MD gs Botello, Elizabeth eb Corrections: (The following items were deleted from the chart) 01/12 16:40 16:26 Hospitalization Ordered by Kavon Romero MD for Inpatient Admission. Preliminary eb diagnosis is Extended spectrum beta lactamase (ESBL) resistance; Urinary tract infection, site not specified. Bed requested for Telemetry/MedSurg (Inpatient). Status is Inpatient Admission. Condition is Stable. Problem is new. Symptoms have improved. UTI on Admission? Yes. jr8 17:10 16:40 01/12/2019 16:26 Hospitalization Ordered by Kavon Romero MD for Inpatient em Admission. Preliminary diagnosis is Extended spectrum beta lactamase (ESBL) resistance; Urinary tract infection, site not specified. Bed requested for Telemetry/MedSurg (Inpatient). Status is Inpatient Admission. Condition is Stable. Problem is new. Symptoms have improved. UTI on Admission? Yes. eb
[2019-01-12 16:31] LABS: Potassium 4.3 mmol/L (3.5-5.1)
[2019-01-12] MEDS ORDERED: ALBUTEROL 2.5 MG/3 ML NEB SOL NEB PRN (17:16)
[2019-01-12] MEDS ORDERED: Meropenem 1000 MG/VIAL IV SCH (17:16)
--- NOTE | 2019-01-12 17:34 | RAD REPORT ---
EXAM DESCRIPTION: RAD - Chest Single View - 01/12/2019 5:24 pm CLINICAL HISTORY: Cough COMPARISON: None. TECHNIQUE: AP portable chest image was obtained 1719 hours . FINDINGS: Lungs are clear. Heart and vasculature are normal. No measurable pleural effusion and no p neumothorax. No acute bony abnormality seen. No acute aortic findings suspected. IMPRESSION: No acute cardiopulmonary process.
[2019-01-12 17:52] VITALS: BMI 23.6
[2019-01-12] MEDS: MORPHINE 2 MG/ML SYR IV PRN ×2 (17:59→23:41)
[2019-01-12] MEDS: Meropenem 1,000 MG in NA CHLORIDE 0.9% 100 ML IV SCH (19:00)
[2019-01-12] MEDS: NA CHLORIDE 0.9% 1,000 ML IV SCH (19:00)
[2019-01-12] MEDS: HOME MED 1 EA UNK (Budesonide/Formoterol Fumarate [Symbicort 160-4.5 Mcg Inhaler] 2 PUFF) IH SCH (21:00)
[2019-01-12] MEDS ORDERED: HOME MED 1 EA UNK (Duloxetine Hcl [Duloxetine Hcl] 1 TAB) PO SCH (21:00)
[2019-01-12] MEDS: DULOXETINE 30 MG CAP PO SCH (22:24)
[2019-01-12] MEDS: ACETAMINOPHEN 500 MG TAB PO PRN (22:24)
[2019-01-12] MEDS: QUETIAPINE 25 MG TAB PO SCH (22:24)
[2019-01-12] MEDS: ENOXAPARIN 40 MG/0.4 ML SQ SCH (22:25)
--- NOTE | 2019-01-12 23:19 | EKG ---
Test Date: 2019-01-12 Test Time: 16:32:23 Glass Installer: DMITRI MEASUREMENT RESULTS: Intervals: Rate: 75 NJ: 140 QRSD: 80 QT: 410 QTc: 457 [place]: P: 79 NJ: 140 QRS: 56 T: 56 INTERPRETIVE STATEMENTS: Normal sinus rhythm Normal ECG No previous ECG available for comparison Electronically Signed On 01-12-19 23:19:25 CDT by Nathanael Still
[2019-01-13] MEDS: Meropenem 1,000 MG in NA CHLORIDE 0.9% 100 ML IV SCH ×3 (00:20→16:19)
--- NOTE | 2019-01-13 03:18 | HP ---
Date of Admission: 01/12/2019 Chief Complaint: Abnormal urine culture. History Of Present Illness: The patient is a 53-year-old female with past medical history of asthma, major depressive disorder, who was in her usual state of health until 1 week prior to admission when the patient had UTI diagnosed at urgent care center. The patient was started on Macrobid on Tuesday. The patient did not improve, continued to have dysuria, frequency, and now having flank pain on the left. The patient was contacted by the urgent care who recommended the patient to seek further anthony tment and evaluation due to positive culture results growing ESBL E coli. The patient then came into the ER. Her symptoms are constant, moderate, and worsening. No alleviating factors. The patient t ried cranberry pills and fluid hydration, however, did not improve her symptoms. The patient has bee n on Macrobid for 5 days. In the ER, her white count was mildly elevated at 11.2. Creatinine was no rmal. It should be noted that the patient has a solitary kidney due to right nephrectomy secondary t o polycystic kidney disease. The patient was then referred for admission. She was given first dose of meropenem in the ER. Past Medical History: Polycystic kidney disease, status post right nephrectomy, recurrent UTIs, asth ma, major depressive disorder. Surgical History: Hysterectomy, partial colectomy, right nephrectomy. Allergies: TO CIPRO, BACTRIM, AND CODEINE. Medications: List reviewed. Social History: The patient denies any tobacco use or alcohol use. The patient is . Family History: Father has diabetes. Mom of ovarian cancer. Review of Systems: An 11-point system reviewed, negative except as per HPI. Physical Examination: Vital Signs: Blood pressure 128/76, pulse 86, respirations 14, temperature 98.4, O2 98% on room air. BMI 24.45. General: Awake, alert, oriented x3. Mild distress. Ill-appearing female. HEENT: Normocephalic, atraumatic. PERRLA. EOMI. Dry mucous membranes. Oropharynx is clear. Poor dentition. Conjunctivae are anicteric. Neck: Supple. No JVD. Trachea midline. CV: S1, S2. Regular rate and rhythm. Peripheral pulses present. Respiratory: Moving air well bilaterally. No wheezing or stridor. No use of accessory muscles. Gastrointestinal: Abdomen is soft. Mild tenderness to palpation. No guarding or rigidity. Positiv e bowel sounds. The patient does have left flank pain. Extremities: No clubbing, cyanosis, or edema. No calf tenderness. Neuro: Cranial nerves 2-12 intact grossly. No focal neurological deficit. Speech is normal. Skin: No rashes. Normal skin turgor. Psych: Mood is okay. Affect is full. Insight and judgment are good. Laboratory Data: WBC 11.2, H and H 13.2 and 39.7, platelets 414, neutrophils 53%. Sodium 142, potas sium 4.3, chloride 108, CO2 29, BUN 16, creatinine 1, glucose 93, calcium 9.7. Urine culture from [facility] shows ESBL E coli. Assessment And Plan: A 53-year-old female with: 1.Acute pyelonephritis. We will start her on meropenem and repeat cultures. 2.ESBL E coli infection. The patient will need 2 weeks of IV meropenem. We will obtain PICC line a nd have social work set up IV antibiotics at home for infusion therapy. 3.Intermittent asthma. Continue albuterol as needed and Symbicort. 4.Major depressive disorder, in remission. Continue Cymbalta. 5.Polycystic kidney disease, status post right nephrectomy. 6.DVT prophylaxis with Lovenox. Admit the patient to med-surg, place as inpatient. Length of stay, greater than 2 midnights. LISA Voice ID: [id number]
[2019-01-13] MEDS: MORPHINE 2 MG/ML SYR IV PRN ×5 (06:04→22:00)
[2019-01-13] MEDS: ONDANSETRON 4 MG/2 ML VIAL IV PRN ×2 (06:04→20:19)
[2019-01-13 06:11] LABS: Absolute Lymphocytes (CBC) 3.7 K/uL (0.7-4.9); Basophils % 0.9 % (0-1.3); Eosinophils % 2.1 % (0-4.4); Hematocrit 35.8 % (36.0-45.0); Lymphocytes % 40.1 % (15.3-44.8); MPV 8.4 fL (7.6-11.3); Monocytes % 5.7 % (3.3-12.3)
[2019-01-13 06:42] LABS: Albumin 3.2 g/dL (3.4-5.0); Bilirubin Total 0.4 mg/dL (0.2-1.0); Magnesium 1.7 mg/dL (1.8-2.4); Potassium 4.2 mmol/L (3.5-5.1); Protein, Total 6.6 g/dL (6.4-8.2)
[2019-01-13] MEDS: HOME MED 1 EA UNK (Budesonide/Formoterol Fumarate [Symbicort 160-4.5 Mcg Inhaler] 2 PUFF) IH SCH ×2 (09:00→21:00)
[2019-01-13] MEDS ORDERED: MAGNESIUM SULFATE 1 gm IVPB 1 GM/100 ML BAG IV ONE (09:00)
[2019-01-13] MEDS: NA CHLORIDE 0.9% 1,000 ML IV SCH ×3 (09:16→23:01)
[2019-01-13] MEDS: ENOXAPARIN 40 MG/0.4 ML SQ SCH (09:23)
--- NOTE | 2019-01-13 11:06 | RAD REPORT ---
EXAM DESCRIPTION: CT - Stone Protocol - 01/13/2019 10:44 am CLINICAL HISTORY: Abdominal pain. COMPARISON: None. TECHNIQUE: Computed axial tomography of the abdomen pelvis was obtained without oral or IV contrast. Lack of IV and oral contrast limits evaluation of solid organs, bowel, and vessels. Coronal reformat jonathan images were obtained and reviewed. All CT scans are performed using dose optimization technique as appropriate and may include automated exposure control or mA/KV adjustment according to patient size. FINDINGS: Right nephrectomy Mild prominence of left extrarenal pelvis. No renal calculus. Ureteral calculus is not seen. A bladde r calculus is not present. Cholecystectomy Splenic granulomata Liver, Pancreas and adrenals appear grossly normal. Postsurgical changes involve right:/ileum. Fluid is present throughout the colon. The colon is upper limits normal caliber. Hysterectomy. Small hiatal hernia IMPRESSION: Right nephrectomy Mild prominence of a left extrarenal pelvis may be physiologic or secondary to a mild UPJ stricture
--- NOTE | 2019-01-13 16:17 | PN ---
Date of Progress Note: 01/13/2019 Subjective: The patient was seen and examined. Chart reviewed and case discussed with RN. The nicole ent is still complaining of pain. She has significant pain in the left flank radiating to the front. Medications List: Reviewed. Physical Examination: Vital Signs: Temperature 98.1, heart rate 76, blood pressure 126/72, respirations 16, O2 96% on room air. General: Awake, alert, oriented x3, mild distress. CV: S1, S2. Regular rate and rhythm. Peripheral pulses present. Respiratory: Moving air well bilaterally. No wheezing or stridor. Gastrointestinal: Abdomen is soft. Tenderness to palpation in the left lower quadrant. No rebound or guarding. Positive bowel sounds. Left flank tenderness. Extremities: No clubbing, cyanosis, or edema. No calf tenderness. Neuro: Cranial nerves 2-12 intact grossly. No focal neurological deficit. Speech is normal. Skin: No rashes. Normal skin turgor. Laboratory Data: Sodium 145, potassium 4.2, chloride 112, CO2 27, BUN 10, creatinine 0.93, glucose 9 4, calcium 8.4, magnesium 1.7. WBC 9.2, H and H 12.1 and 35.8, platelets 345. CT scan of the abdomen showed right nephrectomy, mild prominence of a left extrarenal pelvis may be p hysiological or secondary to a mild UPJ stricture. Assessment And Plan: A 53-year-old female with: 1.Acute pyelonephritis. Continue with meropenem. 2.ESBL Escherichia coli infection. Continue with IV meropenem for 2 weeks. PICC line has been plac ed. X-ray is still pending. We will set up IV antibiotic infusion therapy at home with home health. 3.Intermittent asthma. Continue albuterol as needed. 4.Major depressive disorder. Continue Cymbalta. Currently in remission. 5.Polycystic kidney disease status post right nephrectomy. 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 The patient will need Urology consultatio n. 7.Deep venous thrombosis prophylaxis with Lovenox. Plan Urology consultation. Continue with IV flu ids. Adjust pain medications. Discharge once IV antibiotics have been set up. 8.Hypomagnesemia, replace and monitor. SA/MODL Voice ID: [id number] Report ID: [id number]
[2019-01-13] MEDS: DULOXETINE 30 MG CAP PO SCH (20:19)
[2019-01-13] MEDS: QUETIAPINE 25 MG TAB PO SCH (20:19)
[2019-01-13] MEDS: ACETAMINOPHEN 500 MG TAB PO PRN (20:19)
[2019-01-14] MEDS: Meropenem 1,000 MG in NA CHLORIDE 0.9% 100 ML IV SCH ×3 (00:15→16:47)
[2019-01-14] MEDS: NA CHLORIDE 0.9% 1,000 ML IV SCH ×3 (01:16→20:50)
[2019-01-14] MEDS: ACETAMINOPHEN 500 MG TAB PO PRN ×2 (01:53→08:39)
[2019-01-14] MEDS: MORPHINE 2 MG/ML SYR IV PRN ×2 (05:32→09:51)
[2019-01-14] MEDS: ONDANSETRON 4 MG/2 ML VIAL IV PRN (05:45)
[2019-01-14 05:57] LABS: Albumin 3.2 g/dL (3.4-5.0); Bilirubin Total 0.5 mg/dL (0.2-1.0); Protein, Total 6.5 g/dL (6.4-8.2)
[2019-01-14] MEDS: ENOXAPARIN 40 MG/0.4 ML SQ SCH (08:38)
[2019-01-14] MEDS: HOME MED 1 EA UNK (Budesonide/Formoterol Fumarate [Symbicort 160-4.5 Mcg Inhaler] 2 PUFF) IH SCH ×2 (08:39→20:06)
[2019-01-14] MEDS: HYDROCODONE/APAP 7.5/325 MG TAB PO PRN ×2 (15:02→20:04)
--- NOTE | 2019-01-14 18:40 | PN ---
Date of Progress Note: 01/14/2019 Subjective: The patient was seen and examined. Chart reviewed and case discussed with RN. The patient states she feels better. Her left-sided flank pain has improved. Case discussed with Dr. Ayoub. Medications: List reviewed. Physical Examination: Vital Signs: Temperature 98.3, heart rate 75, blood pressure 108/62, respirations 16, O2 93% on room air. General: Awake, alert, oriented x3, not in any acute distress. CV: S1-S2. No murmurs. Respiratory: Moving air well bilaterally. No wheezing. Gastrointestinal: Abdomen is soft. Mild tenderness to palpation in the suprapubic region. No rebound or guarding. Extremities: No clubbing, cyanosis, or edema. Neurologic: Nonfocal. Laboratory Data: Sodium 144, potassium 4, chloride 113, CO2 of 29, BUN 7, creatinine 0.89, glucose 93, calcium 7.9, magnesium 2, albumin 3.2. Assessment And Plan: A 53-year-old female with: 1. ESBL Escherichia coli infection. Continue with IV antibiotics. 2. Acute pyelonephritis. Continue with meropenem. CT scan did show some mild prominence of the left extrarenal pelvis. Case discussed with Dr. Ayoub. He does not recommend any intervention at this time. Recommends outpatient followup. 3. Intermittent asthma. Continue albuterol as needed. 4. Major depressive disorder, single episode. Continue SSRI. Currently in remission. 5. Polycystic kidney disease, status post right nephrectomy. 6. Possible ureterovesical junction stricture on the left. Outpatient Urology followup. 7. Hypomagnesemia. We will replace and monitor. 8. Deep venous thrombosis prophylaxis with Lovenox. Plan: Continue meropenem. Discontinue morphine, switch to [place]. We will add stool softeners. Anticipate discharge in a.m. once outpatient IV antibiotics have been set up through home health and home infusion. /EVELIA Voice ID: [id number] Report ID: [id number] OLAF
[2019-01-14] MEDS: DULOXETINE 30 MG CAP PO SCH (20:03)
[2019-01-14] MEDS: QUETIAPINE 25 MG TAB PO SCH (20:04)
[2019-01-14] MEDS: DOCUSATE NA 100 MG CAP PO SCH (20:04)
[2019-01-15] MEDS: HYDROCODONE/APAP 7.5/325 MG TAB PO PRN ×5 (00:09→19:28)
[2019-01-15] MEDS: Meropenem 1,000 MG in NA CHLORIDE 0.9% 100 ML IV SCH ×3 (00:09→16:38)
[2019-01-15 05:26] LABS: Albumin 2.9 g/dL (3.4-5.0); Bilirubin Total 0.5 mg/dL (0.2-1.0); Potassium 3.6 mmol/L (3.5-5.1); Protein, Total 5.9 g/dL (6.4-8.2)
[2019-01-15] MEDS: HOME MED 1 EA UNK (Budesonide/Formoterol Fumarate [Symbicort 160-4.5 Mcg Inhaler] 2 PUFF) IH SCH (07:59)
[2019-01-15] MEDS: DOCUSATE NA 100 MG CAP PO SCH (08:02)
[2019-01-15] MEDS: ENOXAPARIN 40 MG/0.4 ML SQ SCH (08:03)
[2019-01-15] MEDS ORDERED: POTASSIUM 25 MEQ EFFERV TAB PO ONE (09:00)
[2019-01-15] MEDS ORDERED: POLYETHYL GLY 3350 17 GM/DOSE PO SCH (09:00)
[2019-01-15] MEDS: NA CHLORIDE 0.9% 1,000 ML IV SCH ×2 (10:00)
[2019-01-15] MEDS ORDERED: NA CHLORIDE 0.9% 1,000 ML IV SCH (13:00)
--- NOTE | 2019-01-15 13:37 | RAD REPORT ---
EXAM DESCRIPTION: RAD - Chest Single View - 01/13/2019 2:53 am CLINICAL HISTORY: 3 years Female, S/P PICC insertion COMPARISON: Chest radiograph dated 01/12/2019 FINDINGS: Placement of right upper extremity PICC terminating in the distal SVC. No focal lung consolidation. No pleural effusion. No pneumothorax. Cardiac and mediastinal silhouette is unremarkable. No acute osseous abnormality. IMPRESSION: Appropriately placed right upper extremity PICC. No pneumothorax Electronically signed by: Clifton Todd DO 01/13/2019 3:02 AM CDT Due to temporary technical issues with the PACS/Fluency reporting system, reports are being signed by the in house radiologist as a courtesy to ensure prompt reporting. The interpreting radiologist is f ully responsible for the content of the report.
[2019-01-15] MEDS: ONDANSETRON 4 MG/2 ML VIAL IV PRN (13:41)
[2019-01-15] MEDS ORDERED: ALBUTEROL 2.5 MG/3 ML NEB SOL NEB PRN (16:00)
--- NOTE | 2019-01-16 00:06 | DS ---
Date of Discharge: 01/15/2019 Procedures: PICC line placement. Admitting Diagnoses: 1.ESBL E coli infection. 2.Acute pyelonephritis. 3.Intermittent asthma. 4.Major depressive disorder. 5.Polycystic kidney disease, status post right. Discharge Diagnoses: 1.Acute pyelonephritis. 2.ESBL E coli infection in the urine. 3.Intermittent asthma, stable. 4.Major depressive disorder, stable. 5.Polycystic kidney disease, status post right nephrectomy. 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 The patient will need to follow up with Urology as an outpatient. Hospital Course: The patient is a 53-year-old female, who was diagnosed with UTI and pyelonephritis and [facility], she was called back once culture results grew ESBL E coli. The patient wa s admitted to the hospital for further evaluation and workup. The patient had significant pain on th e left flank. She does have a solitary kidney due to polycystic kidney disease status post right nep hrectomy. The patient was started on meropenem. PICC line was placed. Social workers were consulte d to arrange for IV antibiotics at home. is available for teaching and to help administer th e IV antibiotics. The patient's pain improved significantly. She did have a CT scan done, which rul ed out any stones, did show some left UVJ stricture. I did speak with Dr. Ayoub, Urology, who recomm ended outpatient followup, no intervention at this time. The patient's white blood cell count improv ed. She remained afebrile, did not have any signs of sepsis. Her electrolyte abnormalities were cor rected. She had mild hypomagnesemia. Overall, the patient did well. The patient was then discharge d home once IV antibiotics were arranged. Followup: The patient is to follow up with PCP in 2-3 days. Follow up with urologist, Dr. Ayoub, in 2 weeks. Return to ER for worsening condition. The patient will need weekly CBC, CMP, ESR, and CRP and to have urine cultures repeated once antibiotics are finished. Medications: As per medication reconciliation list. Physical Examination: General: Awake, alert, oriented x3. No acute distress. CV: S1, S2. No murmurs. Respiratory: Moving air well bilaterally. Abdomen: Soft, nontender, nondistended. Positive bowel sounds. Extremities: No clubbing, cyanosis, or edema. Neuro: Nonfocal. Total time spent discharging the patient was 33 minutes. /EVELIA Voice ID: [id number] Report ID: [id number]
[2019-01-17 14:35] VITALS: BP 153/77; TEMP 97.9
[2019-01-17 15:20] VITALS: O2SAT 96
== END 2019-01-15 20:25 | disposition home health service (06) | DRG 690 ==
LOC: ER 13:36 → ERHOLD 16:16 → 4TH 16:58
PROVIDERS: ADMIT Family Medicine; ATTEND Family Medicine
PROC: 02HV33Z Insertion of Infusion Device into Superior Vena Cava, Percutaneous Approach (ICD-10-PCS; principal; 2019-01-13)
DX: N10 Acute pyelonephritis (principal); Q61.3 Polycystic kidney, unspecified; B96.20 Unspecified Escherichia coli [E. coli] as the cause of diseases classified elsewhere; Z16.12 Extended spectrum beta lactamase (ESBL) resistance; N13.5 Crossing vessel and stricture of ureter without hydronephrosis; E83.42 Hypomagnesemia; J45.20 Mild intermittent asthma, uncomplicated; F32.5 Major depressive disorder, single episode, in full remission; Z88.1 Allergy status to other antibiotic agents; Z88.5 Allergy status to narcotic agent; Z90.5 Acquired absence of kidney
CPT/HCPCS: 36415; 71045; 74176; 76377; 80048; 80053; 83735; 85025; 93005; 94760; 94762; 96374; 99285; J1650; J2185; J2270; J2405; J3475; J7030